=== PATIENT | female | born 1940 | race Caucasian/White ===

== ENCOUNTER 2016-10-21 07:04 | Observation (INO) | payer OTHER ==
[~2016-10-21] VITALS: Ht 139.7 cm; Wt 67.8 kg
--- NOTE | 2016-10-21 10:34 | DIAGNOSTIC IMAGING REPORT ---
PROCEDURE: XR CHEST 1 VIEW INDICATION: SOB TECHNIQUE: Portable AP view 07:55 a.m. COMPARISON: Chest 07/02/2014 and 12/21/2010 FINDINGS: There is a new left lower lobe infiltrate. Heart and mediastinum are normal. There is an old fracture the right posterior lateral fifth rib. Thorax is otherwise normal. IMPRESSION: 1. Left lower lobe infiltrate.
--- NOTE | 2016-10-21 11:01 | DIAGNOSTIC IMAGING REPORT ---
PROCEDURE: CTA THORAX WITH CONTRAST INDICATION: SHORTNESS OF BREATH TECHNIQUE: 85 ml of Isovue 370 was injected intravenously and axial images were obtained of the entire thorax with 3D sagittal and coronal MIP reconstructions. COMPARISON: Chest x-ray 10/21/2016. FINDINGS: No evidence of pulmonary emboli. No aortic dissection or aneurysm. Subsegmental left lower lobe atelectasis but no evidence of a central mass. No effusion. 2.7 cm left axillary low density soft tissue mass. Bilateral thyroid nodules, largest in the left lobe 2.2 cm. Mild coronary atherosclerosis. Mild cardiomegaly. Large pericardial fat pads. Cholecystectomy. Thoracic spine ankylosis. IMPRESSION: 1. No evidence of pulmonary emboli, aortic dissection or aneurysm 2. Subsegmental left lower lobe atelectasis, possibly from a mucous plug 3. 2.7 cm left axillary soft tissue mass, hematoma versus lymph node. 4. Bilateral thyroid nodules 5. Mild cardiomegaly 6. Ankylosing spondylitis 7. Results discussed with Dr. Snyder
--- NOTE | 2016-10-21 14:33 | ED NURSING NOTES ---
Clinical Report - Nurses [facility] [address] [place] [address] 10/21/2016 7:18 Patient: WOOD ROUSSEAU TRIAGE Triage time 07:24. Acuity: LEVEL 3. Chief Complaint: COUGH and (SOB). Alert. No acute distress. --07:45 Elmo Maguire R.N. 07:24 10/21/16. BP: 115/89. HR: 87. RR: 22. O2 saturation: 97%. Temp: 98.8 F. --07:45 Elmo Maguire R.N. 15:34 10/21/16. Pain level now 5/10. --15:34 Elmo Maguire R.N. Weight: 68.9 kg stated. Height/Length: 55 inches Per Patient. BMI: 35.4. --07:30 Elmo Maguire R.N. Medications Atenolol Oral 50 mg, daily. --07:39 Elmo Maguire R.N. Albuterol Sulfate HFA Inhalation. AmLODIPine Besylate Oral 5 mg, daily. Aspirin Oral (Tablet Chewable 81 mg), daily. Azithromycin Oral. Ferrous Sulfate Oral. OxyCODONE HCl Oral. PredniSONE Oral 5 mg, daily. --07:45 Elmo Maguire R.N. The following entry was struck by Elmo Maguire R.N., 10:40 (10/21/16) Reason - other(States no longer takes this medicine). <<STRICKEN ENTRY-- Insulin Lispro (Human) Subcutaneous. --07:45 Elmo Maguire R.N. --END STRIKE>> The following entry was struck by Elmo Maguire R.N., 10:40 (10/21/16) Reason - other(States no longer takes this medicine). <<STRICKEN ENTRY-- Glipizide Oral. --07:45 Elmo Maguire R.N. --END STRIKE>> The following entry was struck by Elmo Maguire R.N., 10:40 (10/21/16) Reason - other(States no longer takes this medicine). <<STRICKEN ENTRY-- Flonase Nasal 1 spray, daily. --07:39 Elmo Maguire R.N. --END STRIKE>> The following entry was struck by Elmo Maguire R.N., 10:39 (10/21/16) Reason - other(States no longer takes this medicine). <<STRICKEN ENTRY-- Calcitriol Oral. --07:45 Elmo Maguire R.N. --END STRIKE>> The following entry was struck by Elmo Maguire R.N., 10:39 (10/21/16) Reason - other(States no longer takes this medicine). [facility]-- Beclomethasone Dipropionate Inhalation. --07:45 Elmo Maguire R.N. --END STRIKE>> The following entry was struck and corrected by Elmo Maguire R.N., 10:38 (10/21/16) Reason for correction - other(correction). <<[facility]-- Atenolol Oral 50 mg, 2x a day. --07:39 Elmo Maguire R.N. --END STRIKE>> The following entry was struck and corrected by Elmo Maguire R.N., 10:38 (10/21/16) Reason for correction - other(correction). <<[facility]-- Aspirin Oral. --07:45 Elmo Maguire R.N. --END STRIKE>> The following entry was struck and corrected by Elmo Maguire R.N., 10:38 (10/21/16) Reason for correction - other(correction). <<[facility]-- AmLODIPine Besylate Oral. --07:45 Elmo Maguire R.N. --END STRIKE>> The following entry was struck and corrected by Elmo Maguire R.N., 10:37 (10/21/16) Reason for correction - other(correction). <<[facility]-- PredniSONE Oral. --07:45 Elmo Maguire R.N. --END STRIKE>> The following entry was struck by Elmo Maguire R.N., 10:37 (10/21/16) Reason - other(States no longer takes this medicine). <<STRICKEN ENTRY-- Pravastatin Sodium Oral. --07:45 Elmo Maguire R.N. --END STRIKE>>. Allergies LOSARTAN. --07:35 Elmo Maguire R.N. Fenofibrate. --07:35 Elmo Maguire R.N. Tape. --07:36 Elmo Maguire R.N. Allopurinol. Simvastatin. --07:36 Elmo Maguire R.N. morphine. --10:41 Elmo Maguire R.N. History Arrived by EMS. Historian: EMS and patient. Onset. (3 days ago). ( Seen yesterday at [facility] for cough and started on Zithromax. States cough and wheezing is worse. Patient in no distress, talking in long sentences. Has audible wheezes and cough.). 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 SOCIAL HX: Never smoker. FALL RISK ASSESSMENT: Fall risk assessment completed. No fall risk identified. NUTRITIONAL RISK ASSESSMENT: The nutritional risk assessment revealed no deficiencies. FUNCTIONAL ASSESSMENT: Functional assessment: no impairments noted. LEARNING NEEDS ASSESSMENT: The learning needs assessment revealed no barriers. SKIN INTEGRITY ASSESSMENT: Skin integrity risk assessment completed. No skin integrity risk identified. --07:45 Elmo Maguire R.N. Interventions ID band on patient. To room. --07:45 Elmo Maguire R.N. PHYSICAL ASSESSMENT To room via stretcher. GENERAL / NEURO / PSYCH: Alert. Oriented X 4. Appears in no acute distress. RESPIRATORY: Respirations not labored. Wheezes bilaterally. SKIN: Skin is warm and dry. --07:46 Elmo Maguire R.N. NURSING PROGRESS NOTES 07:40 10/21/2016 Duoneb (Ipratropium-Albuterol) Neb TX Nebulizer 1 unit dose given. Given by the respiratory therapist. Allergies verified and confirmed 5 rights. Thuan Chris --07:40 Thuan Chris Oxygen administered by nasal cannula at 1.5 liters. transmission and coordination engineer, pulse oximeter and NIBP monitor placed on patient. Patient ID band checked for patient name and birthdate. Blood samples drawn by nurse: green and purple top. Patient gowned. Call light placed in reach. Side rails up. Bed placed in lowest position. --07:49 Elmo Maguire R.N. EKG time: (0752). EKG was ordered, performed by a tech and shown to the ED physician. --07:55 Homero Toledo ER Tech1 08:01 10/21/2016 Site #1 started via IV in the left antecubital space with an 20g angiocath, with aseptic technique and good blood return; one attempt. Blood drawn: rainbow set. Labeled in the presence of the patient and sent to the lab. Saline lock flushed with 10 mL saline (ultrasound guidance x20 minutes). --09:01 Cornel Trejo R.N. Checked patient name and birthdate: patient confirmed. Instructions provided to collect clean catch urine and patient verbalized understanding urine collected with return of yellow-colored clear urine; odor is normal; sample sent to lab for urinalysis and culture. ( PT ambulated to bathroom with a walker, voided 200ccs). --09:26 Homero Toledo ER Tech1 09:30. Patient transported to CT by wheelchair with tech. --10:02 Elmo Maguire R.N. 09:45. Patient returned from CT by wheelchair with tech. --10:03 Elmo Maguire R.N. 09:45. ( unable to do CTA because IV has infiltrated). --10:03 Elmo Maguire R.N. 10:00. ( IV, 20 gauge started with US guidance per Dr Gilmore). --10:06 Elmo Maguire R.N. 09:57 10/21/2016 Site #2 started via IV in the right antecubital space with an 20g angiocath; one attempt. Saline lock flushed with 10 mL saline. --10:08 Elmo Maguire R.N. 10:01 10/21/2016 Morphine IVP 4 mg given over 2 minute(s) via site #2. Allergies verified, confirmed 5 rights and sedative warning given to the patient. IV patency established. IV site checked: no pain, redness, or swelling. IV flushed thoroughly pre- and post-medication administration. IVP given by --10:08 Elmo Maguire R.N. Patient transported to CT by stretcher with tech. (10:05). --10:08 Elmo Maguire R.N. 10:2010:20. Patient returned from CT by stretcher with tech. ( Patient returned from CT and states she feels bad after receiving MS. States she thinks that she remembers that she felt bad after receiving MS once before. Morphine added to her allergy list.). --10:44 Elmo Maguire R.N. 10:49 10/21/16. Point of care testing: performed by tech. Glucose: 207. --10:49 Major Myers ( PT taken to bathroom on wheelchair). --11:48 Homero Toledo, CASH Tech1 ( Patient sleeping.). --12:20 Elmo Maguire R.N. 12:19 10/21/16. O2 saturation: 91%. --12:20 Elmo Maguire R.N. 12:41 10/21/16. O2 saturation: 95%. --12:41 Elmo Maguire R.N. ( Patient sleeping. Respirations unlabored.). --12:42 Elmo Maguire R.N. 12:50 10/21/2016 Prednisone PO Tablets 40 mg given. Allergies verified and confirmed 5 rights. --12:55 Elmo Maguire R.N. 12:54 10/21/2016 Started 500 mg of Levofloxacin IVPB in bag #1 100 mL; at 100 mL/hr over 1 hour(s) via site #2 --12:54 Elmo Maguire R.N. 13:11 10/21/16. BP: 141/46. HR: 82. RR: 19. O2 saturation: 92%. --13:13 Braeden Antonio R.N. Cardiac rhythm: (SR). ( pt sleeping, equal rise fall of chest, atbx infusing per primary RN, v/s updated.). --13:13 Braeden Antonio R.N. 13:43 10/21/2016 Levofloxacin IVPB Discontinued: bag #1 infused. Total amount infused: 100 mL. IV patency established. IV site checked: no pain, redness, or swelling. IV flushed thoroughly. --13:43 Elmo Maguire R.N. 14:20 10/21/16. BP: 153/58. HR: 84. RR: 16. O2 saturation: 93%. Temp: 98.8 F. Pain level now 0/10. --14:21 Elmo Maguire R.N. ( Pt ambulated with walker. SPO2 down to 91%. Patient with labored breathing and now states she does not think she can go home. Dr Snyder notified). --14:25 Elmo Maguire R.N. 15:08 10/21/16. BP: 158/61. HR: 88. RR: 111. O2 saturation: 95%. Temp: 98.2 F. Pain level now 510. --15:11 Elmo Maguire R.N. Intake & Output Urine, with return of 200 mL urine. --12:41 Elmo Maguire R.N. DISPOSITION / DISCHARGE Condition at departure: improved. Admitted. Transported via wheelchair by nurse. Patient's personal items include, PJs, with patient. --15:33 Elmo Maguire R.N. 15:28 10/21/16. BP: 155/61. HR: 88. RR: 18. O2 saturation: 93%. Temp: 98.6 F. Pain level now 5/10. --15:33 Elmo Maguire R.N. Locked/Released at 10/21/2016 15:35 by Elmo Maguire R.N.
--- NOTE | 2016-10-21 14:33 | ED NURSING NOTES ---
Clinical Report - Nurses [facility] [address] [place] [address] 10/21/2016 7:18 Patient: WOOD ROUSSEAU TRIAGE Triage time 07:24. Acuity: LEVEL 3. Chief Complaint: COUGH and (SOB). Alert. No acute distress. --07:45 Elmo Maguire R.N. 07:24 10/21/16. BP: 115/89. HR: 87. RR: 22. O2 saturation: 97%. Temp: 98.8 F. --07:45 Elmo Maguire R.N. 15:34 10/21/16. Pain level now 5/10. --15:34 Elmo Maguire R.N. Weight: 68.9 kg stated. Height/Length: 55 inches Per Patient. BMI: 35.4. --07:30 Elmo Maguire R.N. Medications Atenolol Oral 50 mg, daily. --07:39 Elmo Maguire R.N. Albuterol Sulfate HFA Inhalation. AmLODIPine Besylate Oral 5 mg, daily. Aspirin Oral (Tablet Chewable 81 mg), daily. Azithromycin Oral. Ferrous Sulfate Oral. OxyCODONE HCl Oral. PredniSONE Oral 5 mg, daily. --07:45 Elmo Maguire R.N. The following entry was struck by Elmo Maguire R.N., 10:40 (10/21/16) Reason - other(States no longer takes this medicine). <<STRICKEN ENTRY-- Insulin Lispro (Human) Subcutaneous. --07:45 Elmo Maguire R.N. --END STRIKE>> The following entry was struck by Elmo Maguire R.N., 10:40 (10/21/16) Reason - other(States no longer takes this medicine). <<STRICKEN ENTRY-- Glipizide Oral. --07:45 Elmo Maguire R.N. --END STRIKE>> The following entry was struck by Elmo Maguire R.N., 10:40 (10/21/16) Reason - other(States no longer takes this medicine). <<STRICKEN ENTRY-- Flonase Nasal 1 spray, daily. --07:39 Elmo Maguire R.N. --END STRIKE>> The following entry was struck by Elmo Maguire R.N., 10:39 (10/21/16) Reason - other(States no longer takes this medicine). <<STRICKEN ENTRY-- Calcitriol Oral. --07:45 Elmo Maguire R.N. --END STRIKE>> The following entry was struck by Elmo Maguire R.N., 10:39 (10/21/16) Reason - other(States no longer takes this medicine). [facility]-- Beclomethasone Dipropionate Inhalation. --07:45 Elmo Maguire R.N. --END STRIKE>> The following entry was struck and corrected by Elmo Maguire R.N., 10:38 (10/21/16) Reason for correction - other(correction). <<[facility]-- Atenolol Oral 50 mg, 2x a day. --07:39 Elmo Maguire R.N. --END STRIKE>> The following entry was struck and corrected by Elmo Maguire R.N., 10:38 (10/21/16) Reason for correction - other(correction). <<[facility]-- Aspirin Oral. --07:45 Elmo Maguire R.N. --END STRIKE>> The following entry was struck and corrected by Elmo Maguire R.N., 10:38 (10/21/16) Reason for correction - other(correction). <<[facility]-- AmLODIPine Besylate Oral. --07:45 Elmo Maguire R.N. --END STRIKE>> The following entry was struck and corrected by Elmo Maguire R.N., 10:37 (10/21/16) Reason for correction - other(correction). <<[facility]-- PredniSONE Oral. --07:45 Elmo Maguire R.N. --END STRIKE>> The following entry was struck by Elmo Maguire R.N., 10:37 (10/21/16) Reason - other(States no longer takes this medicine). <<STRICKEN ENTRY-- Pravastatin Sodium Oral. --07:45 Elmo Maguire R.N. --END STRIKE>>. Allergies LOSARTAN. --07:35 Elmo Maguire R.N. Fenofibrate. --07:35 Elmo Maguire R.N. Tape. --07:36 Elmo Maguire R.N. Allopurinol. Simvastatin. --07:36 Elmo Maguire R.N. morphine. --10:41 Elmo Maguire R.N. History Arrived by EMS. Historian: EMS and patient. Onset. (3 days ago). ( Seen yesterday at [facility] for cough and started on Zithromax. States cough and wheezing is worse. Patient in no distress, talking in long sentences. Has audible wheezes and cough.). 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 SOCIAL HX: Never smoker. FALL RISK ASSESSMENT: Fall risk assessment completed. No fall risk identified. NUTRITIONAL RISK ASSESSMENT: The nutritional risk assessment revealed no deficiencies. FUNCTIONAL ASSESSMENT: Functional assessment: no impairments noted. LEARNING NEEDS ASSESSMENT: The learning needs assessment revealed no barriers. SKIN INTEGRITY ASSESSMENT: Skin integrity risk assessment completed. No skin integrity risk identified. --07:45 Elmo Maguire R.N. Interventions ID band on patient. To room. --07:45 Elmo Maguire R.N. PHYSICAL ASSESSMENT To room via stretcher. GENERAL / NEURO / PSYCH: Alert. Oriented X 4. Appears in no acute distress. RESPIRATORY: Respirations not labored. Wheezes bilaterally. SKIN: Skin is warm and dry. --07:46 Elmo Maguire R.N. NURSING PROGRESS NOTES 07:40 10/21/2016 Duoneb (Ipratropium-Albuterol) Neb TX Nebulizer 1 unit dose given. Given by the respiratory therapist. Allergies verified and confirmed 5 rights. Thuan Chris --07:40 Thuan Chris Oxygen administered by nasal cannula at 1.5 liters. phototypesetting equipment monitor, pulse oximeter and NIBP monitor placed on patient. Patient ID band checked for patient name and birthdate. Blood samples drawn by nurse: green and purple top. Patient gowned. Call light placed in reach. Side rails up. Bed placed in lowest position. --07:49 Elmo Maguire R.N. EKG time: (0752). EKG was ordered, performed by a tech and shown to the ED physician. --07:55 Homero Toledo ER Tech1 08:01 10/21/2016 Site #1 started via IV in the left antecubital space with an 20g angiocath, with aseptic technique and good blood return; one attempt. Blood drawn: rainbow set. Labeled in the presence of the patient and sent to the lab. Saline lock flushed with 10 mL saline (ultrasound guidance x20 minutes). --09:01 Cornel Trejo R.N. Checked patient name and birthdate: patient confirmed. Instructions provided to collect clean catch urine and patient verbalized understanding urine collected with return of yellow-colored clear urine; odor is normal; sample sent to lab for urinalysis and culture. ( PT ambulated to bathroom with a walker, voided 200ccs). --09:26 Homero Toledo ER Tech1 09:30. Patient transported to CT by wheelchair with tech. --10:02 Elmo Maguire R.N. 09:45. Patient returned from CT by wheelchair with tech. --10:03 Elmo Maguire R.N. 09:45. ( unable to do CTA because IV has infiltrated). --10:03 Elmo Maguire R.N. 10:00. ( IV, 20 gauge started with US guidance per Dr Gilmore). --10:06 Elmo Maguire R.N. 09:57 10/21/2016 Site #2 started via IV in the right antecubital space with an 20g angiocath; one attempt. Saline lock flushed with 10 mL saline. --10:08 Elmo Maguire R.N. 10:01 10/21/2016 Morphine IVP 4 mg given over 2 minute(s) via site #2. Allergies verified, confirmed 5 rights and sedative warning given to the patient. IV patency established. IV site checked: no pain, redness, or swelling. IV flushed thoroughly pre- and post-medication administration. IVP given by --10:08 Elmo Maguire R.N. Patient transported to CT by stretcher with tech. (10:05). --10:08 Elmo Maguire R.N. 10:2010:20. Patient returned from CT by stretcher with tech. ( Patient returned from CT and states she feels bad after receiving MS. States she thinks that she remembers that she felt bad after receiving MS once before. Morphine added to her allergy list.). --10:44 Elmo Maguire R.N. 10:49 10/21/16. Point of care testing: performed by tech. Glucose: 207. --10:49 Major Myers ( PT taken to bathroom on wheelchair). --11:48 Homero Toledo, CASH Tech1 ( Patient sleeping.). --12:20 Elmo Maguire R.N. 12:19 10/21/16. O2 saturation: 91%. --12:20 Elmo Maguire R.N. 12:41 10/21/16. O2 saturation: 95%. --12:41 Elmo Maguire R.N. ( Patient sleeping. Respirations unlabored.). --12:42 Elmo Maguire R.N. 12:50 10/21/2016 Prednisone PO Tablets 40 mg given. Allergies verified and confirmed 5 rights. --12:55 Elmo Maguire R.N. 12:54 10/21/2016 Started 500 mg of Levofloxacin IVPB in bag #1 100 mL; at 100 mL/hr over 1 hour(s) via site #2 --12:54 Elmo Maguire R.N. 13:11 10/21/16. BP: 141/46. HR: 82. RR: 19. O2 saturation: 92%. --13:13 Braeden Antonio R.N. Cardiac rhythm: (SR). ( pt sleeping, equal rise fall of chest, atbx infusing per primary RN, v/s updated.). --13:13 Braeden Antonio R.N. 13:43 10/21/2016 Levofloxacin IVPB Discontinued: bag #1 infused. Total amount infused: 100 mL. IV patency established. IV site checked: no pain, redness, or swelling. IV flushed thoroughly. --13:43 Elmo Maguire R.N. 14:20 10/21/16. BP: 153/58. HR: 84. RR: 16. O2 saturation: 93%. Temp: 98.8 F. Pain level now 0/10. --14:21 Elmo Maguire R.N. ( Pt ambulated with walker. SPO2 down to 91%. Patient with labored breathing and now states she does not think she can go home. Dr Snyder notified). --14:25 Elmo Maguire R.N. 15:08 10/21/16. BP: 158/61. HR: 88. RR: 111. O2 saturation: 95%. Temp: 98.2 F. Pain level now 510. --15:11 Elmo Maguire R.N. Intake & Output Urine, with return of 200 mL urine. --12:41 Elmo Maguire R.N. DISPOSITION / DISCHARGE Condition at departure: improved. Admitted. Transported via wheelchair by nurse. Patient's personal items include, PJs, with patient. --15:33 Elmo Maguire R.N. 15:28 10/21/16. BP: 155/61. HR: 88. RR: 18. O2 saturation: 93%. Temp: 98.6 F. Pain level now 5/10. --15:33 Elmo Maguire R.N. Locked/Released at 10/21/2016 15:35 by Elmo Maguire R.N.
--- NOTE | 2016-10-21 14:33 | ED CLINICAL REPORT ---
Clinical Report - Physicians/Mid Levels [facility] [address] [place] [address] 10/21/2016 7:18 Patient: WOOD ROUSSEAU Time Seen: 09; patient care assumed. Arrived- By private vehicle. Historian- patient. HISTORY OF PRESENT ILLNESS Chief Complaint: DYSPNEA. This started about 3 days ago and is still present (persistent). It was gradual in onset and has been constant. The dyspnea is described as moderate. The dyspnea is worsened by cough. No improvement of dyspnea with rest. The patient has had a cough and wheezing. No fever, chills, chest pain or discomfort or calf pain. No foot swelling or palpitations. Similar symptoms previously: None. Recent medical care: The patient was seen recently in a clinic. ( Seen yesterday at [facility] for cough and started on Zithromax. States cough and wheezing is worse. Patient in no distress, talking in long sentences. Has audible wheezes and cough.). REVIEW OF SYSTEMS No nasal discharge, headache, fainting episodes or skin rash. All systems otherwise negative, except as recorded above. PAST HISTORY Fibromyalgia. Arthritis. Abdominal Pain. Gallstone(s). Bowel Obstruction. Sinusitis. Anxiety Reaction. Insomnia. Ulcerative Colitis. Diabetes Mellitus. Hypertension.. Additional Surgeries: Appendectomy. Cholecystectomy. Colectomy. Colostomy. . Eye surgery.. SOCIAL HISTORY Never smoker. No alcohol use or drug use. Moderate second-hand smoke exposure (from father). ADDITIONAL NOTES The nursing notes have been reviewed. PHYSICAL EXAM Vital Signs: 10/21/2016 07:24 BP: 115/89. HR: 87. RR: 22. O2 saturation: 97%. Temp: 98.8 F. Have been reviewed as normal. Appearance: Alert. No acute distress. Eyes: Eyes normal inspection. ENT: Pharynx normal. Neck: No jugular venous distention. CVS: Normal heart rate and rhythm. Heart sounds normal. Respiratory: No respiratory distress. Mildly decreased air movement diffusely over both lungs. Expiratory mild bilateral wheezes diffusely. Skin: Skin warm and dry. Normal skin color. No rash. Extremities: Bilateral mild 1+ pitting edema of the lower extremities involving both feet and both ankles. No calf tenderness. Neuro: Oriented X 3. LABS, X-RAYS, AND EKG Chest X-ray: (1. Left lower lobe infiltrate.). Views: AP. Technique: rotated. The X-rays were independently viewed by me, interpreted by the radiologist and discussed with the radiologist. Prior films were not available for comparison. Chest CT: (1. No evidence of pulmonary emboli, aortic dissection or aneurysm 2. Subsegmental left lower lobe atelectasis, possibly from a mucous plug 3. 2.7 cm left axillary soft tissue mass, hematoma versus lymph node. 4. Bilateral thyroid nodules 5. Mild cardiomegaly 6. Ankylosing spondylitis). Chest CT performed with contrast. Prior studies were not available for comparison. The study was interpreted by the radiologist and discussed with the radiologist. Interpretation time: 11:20. Laboratory Tests: UA-Culture if indicated: (NALDO: 10/21/2016 09:20) ( [facility] [place] 09:44) Final results Test Result Flag Units (Reference) URINE COLOR YELLOW URINE APPEARANCE CLEAR URINE GLUCOSE 1+ (NEGATIVE) URINE BILIRUBIN NEGATIVE (NEGATIVE) URINE KETONE NEGATIVE (NEGATIVE) URINE SPECIFIC GRAVITY 1.025 (1.010-1.030) URINE PH 5.0 (5.0-8.0) URINE PROTEIN 2+ (NEGATIVE) URINE UROBILINOGEN 0.2 EU/dL (0.2-1.0) URINE NITRITE NEGATIVE (NEGATIVE) URINE BLOOD 1+ (NEGATIVE) URINE LEUK ESTERASE NEGATIVE (NEGATIVE) URINE RBC 1-3 rbc/hpf (0-1) URINE WBC NONE SEEN wbc/hpf (0-1) URINE EPITHELIAL CELLS 1-3 EPI/hpf (0-5) URINE BACTERIA TRACE (<1+) (NONE SEEN) URINE COMMENT CULT NOT INDICATED URINE CULTURES ARE SET-UP BASED ON THE FOLLOWING CRITERIA:POSITIVE NITRITEPOSITIVE LEUKOCYTE ESTERASEGREATER THAN 10 WHITE BLOOD CELLSMODERATE (2+) OR GREATER BACTERIA CBC w Diff: (NALDO: 10/21/2016 07:51) ( [facility] [place] 07:59) Final results Test Result Flag Units (Reference) WHITE BLOOD COUNT 12.6 H K/uL (4.5-11.5) RED BLOOD COUNT 3.77 L M/uL (4.00-5.20) HEMOGLOBIN 11.1 L gm/dL (12.0-16.0) HEMATOCRIT 33.9 L % (36.0-46.0) MEAN CELL VOLUME 90 fL (80-100) MEAN CORPUSCULAR HGB 30 pg (26-34) MEAN CORPUSCULAR HGB CONC 33 g/dL (31-37) RED CELL DISTRIBUTION WIDTH 14.9 H % (11.6-14.8) PLATELET COUNT 281 K/uL (150-400) NEUTROPHIL % 90.2 H % (50-75) LYMPH % 3.8 L % (25-40) MONO % 4.1 % (3-14) EOSINOPHIL % 1.8 % (0-4) BASOPHIL % 0.1 % (0-2) PT with INR: (NALDO: 10/21/2016 07:30) ( [facility] 10/21/2016 08:26) Final results Test Result Flag Units (Reference) INR 0.9 (0.8-1.2) Low Intensity Therapy: INR 1.5-2.0 PT range 18.5-23.1Mod.Intensity Therapy: INR 2.0-3.0 PT range 23.1-31.5High Intensity Therapy: INR 2.5-3.5 PT range 27.4-35.5High Intensity Therapy 2: INR 3.0-4.0 PT range 31.5-39.3 D-DIMER QUANTITATIVE 0.79 H ug/mLFEU (0.27-0.52) The primary value of this quantitative assay relates toits negative predictive value (i.e. exclusion) of pulmonaryembolism/deep vein thrombosis/DIC.Elevated levels of d-dimer may also occur with:, age, cancer, inflammation, liver disease,post-op, infection, hematoma, coronary disease, peripheralarteriopathy, bleeding disorders and thrombolytic treatment.Results should be correlated with other clinical andradiological data.Testing Methodology: Latex Immunoassay BNP: (NALDO: 10/21/2016 07:51) ( [facility] [place] 10/21/2016 08:19) Final results Test Result Flag Units (Reference) B-TYPE NATRIURETIC PEPTIDE 97.8 pg/ml (5-100) CMP: (NALDO: 10/21/2016 07:51) ( [facility] [place] 10/21/2016 08:27) Final results Test Result Flag Units (Reference) GLUCOSE 252 H mg/dL (70-110) BUN 31 H mg/dL (7-18) CREATININE 1.2 mg/dL (0.6-1.3) Estimated GFR 46.55 mL/min Estimated GFR- 56.42 mL/min Note: Persistent reduction over 3 months in eGFR<60 mL/min/1.73 m2 defines CKD. Patients with eGFR values>=60 mL/min/1.73 m2 may also have CKD if evidence ofpersistent proteinuria. Additional information may be foundat www.kidney.org. SODIUM 141 mmol/L (136-145) POTASSIUM 4.2 mmol/L (3.5-5.1) Slightly hemolyzed specimen CHLORIDE 104 mmol/L (98-107) CARBON DIOXIDE 27 mmol/L (21-32) CALCIUM 9.8 mg/dL (8.5-10.1) TOTAL PROTEIN 7.5 g/dL (6.4-8.2) ALBUMIN 3.3 g/dL (3.3-5.0) BILIRUBIN, TOTAL 0.3 mg/dL (0.0-1.0) ALKALINE PHOSPHATASE 129 H U/L (46-116) AST (SGOT) 17 U/L (15-37) ALT (SGPT) 22 U/L (12-78) TROPONIN I <0.05 ng/mL (0.00-1.5) TROPONIN REFERENCE RANGE:<0.1 NEGATIVE0.1-1.5 INDETERMINANT>1.5 POSITIVE THYROID STIMULATING HORMONE 0.636 uIU/mL (0.30-3.74) Rapid Influenza Screen: (NALDO: 10/21/2016 14:00) ( [facility] 10/21/2016 14:38) Final results SPECIMEN DESCRIPTION: SWAB Test Result Flag Units (Reference) RAPID INFLUENZA SCREEN DATE: 10/21/16 INFLUENZA A: NEGATIVE SCREEN FOR INFLUENZA A INFLUENZA B: NEGATIVE SCREEN FOR INFLUENZA B . PROGRESS AND PROCEDURES Discussed case with hospitalist, (call placed [phone] Dr[address] Gardner. [phone] Carmona, will place in obs.). Disposition: Observation in Acute Care. CLINICAL IMPRESSION Acute exacerbation of COPD. INSTRUCTIONS Follow-up: Blood pressure screening was not performed during this visit because the patient has an active diagnosis of hypertension. (Electronically signed by Juan Manuel Snyder Dr. 10/21/2016 15:01)
--- NOTE | 2016-10-21 14:33 | ED ORDER SUMMARY ---
..... Patient: HEAD, WOOD Wilson OrderSheet [facility] VisitID: [id number] [place] [address] 75y, F Registration Date/Time: 10/21/2016 ORDER SHEET Weight: 68.9 kg (stated) Allergies: LOSARTAN, Fenofibrate, Tape, Allopurinol, Simvastatin, morphine GENERAL ORDERS: Chest 1V Urgent (07:10/21/2016 Marlon Dubose) (Ack 7:35 RUPERToerner) (7:53 KHoerner) Formation Testing Operator (Continuous) (SOB) (:10/21/2016 Marlon Dubose) (7:53 Pao R.N.) CBC w Diff Urgent (:10/21/2016 Marlon Dubose) (Ack 7:35 Vicentener) (8:08 Pao R.N.) CMP Urgent (:10/21/2016 Marlon Dubose) (Ack 7:35 RUPERToerner) (8:08 KWilliams R.N.) UA-Culture if indicated Urgent (:10/21/2016 Marlon Dubose) (Ack 7:35 Mina) (9:28 PWeiler ER Tech1) PT with INR Urgent (:10/21/2016 Marlon Dubose) (Ack 7:35 Vicentener) (8:08 KWelizabethams R.N.) Troponin-I Urgent (:10/21/2016 Marlon Dubose) (Ack 7:35 RUPERToerner) (8:08 KWilliams R.N.) D-Dimer Urgent (:10/21/2016 Marlon Dubose) (Ack 7:35 RUPERToerner) (8:08 Pao R.N.) TSH Urgent (:10/21/2016 Marlon Dubose) (Ack 7:35 RUPERToerner) (8:08 KWilliams R.N.) BNP Urgent (:10/21/2016 Marlon Dubose) (Ack 7:35 Mina) (8:08 KWilliams R.N.) Pulse oximeter (07:30 10/21/2016 Marlon Dubose) (7:53 KWilliams R.N.) - (medical records from [facility]) (07:36 10/21/2016 Marlon Dubose) (7:38 Mina) CTA Thorax w Cont (Yes) (gfr> 50) Urgent (08:48 10/21/2016 Marlon Dubose) (Ack 8:49 Mina) (9:36 RUPERToerprateek) Rapid Influenza Screen (Nasal Pharyngeal) (SWAB) Urgent (14:00 10/21/2016 Mina verbal order read back to Xochitl Dubose) (14:01 RUPERToeradha) MEDICATION ORDERS: DuoNeb Neb Tx 1 unit dose (NOW) (07:29 10/21/2016 Marlon Dubose) (7:40 JZiglar) Prednisone PO 40 mg (NOW) (12:38 10/21/2016 Xochitl Dubose) (12:55 GMarshall R.N.) IV FLUIDS: IV Saline Lock (07:30 10/21/2016 Marlon Dubose) (9:01 Pao R.N.) Morphine IV 4 mg (HIGH ALERT MEDICATION, NOW) (08:58 10/21/2016 Marlon Dubose) (Ack 9:03 GMarshall R.N.) (10:08 GMarshall R.N.) Levofloxacin IV 500 mg/100mL (NOW) (12:37 10/21/2016 Xochitl Dubose) (12:54 GMarshall R.N.) ORDER SHEET NOTES: [Electronically signed by Juan Manuel Snyder Dr. (15:01 10/21/2016)] [Electronically signed by lEmo Maguire R.N. (15:35 10/21/2016)] [Electronically locked/signed by Elmo Maguire R.N. (15:35 10/21/2016)]
--- NOTE | 2016-10-21 14:33 | ED ORDER SUMMARY ---
..... Patient: HEAD, WOOD Wilson OrderSheet [facility] VisitID: [id number] [place] [address] 75y, F Registration Date/Time: 10/21/2016 ORDER SHEET Weight: 68.9 kg (stated) Allergies: LOSARTAN, Fenofibrate, Tape, Allopurinol, Simvastatin, morphine GENERAL ORDERS: Chest 1V Urgent (07:10/21/2016 Marlon Dubose) (Ack 7:35 RUPERToerner) (7:53 KHoerner) Retail Sales Director (Continuous) (SOB) (:10/21/2016 Marlon Dubose) (7:53 Pao R.N.) CBC w Diff Urgent (:10/21/2016 Marlon Dubose) (Ack 7:35 Vicentener) (8:08 Pao R.N.) CMP Urgent (:10/21/2016 Marlon Dubose) (Ack 7:35 RUPERToerner) (8:08 KWilliams R.N.) UA-Culture if indicated Urgent (:10/21/2016 Marlon Dubose) (Ack 7:35 Mina) (9:28 PWeiler ER Tech1) PT with INR Urgent (:10/21/2016 Marlon Dubose) (Ack 7:35 Vicentener) (8:08 KWelizabethams R.N.) Troponin-I Urgent (:10/21/2016 Marlon Dubose) (Ack 7:35 RUPERToerner) (8:08 KWilliams R.N.) D-Dimer Urgent (:10/21/2016 Marlon Dubose) (Ack 7:35 RUPERToerner) (8:08 Pao R.N.) TSH Urgent (:10/21/2016 Marlon Dubose) (Ack 7:35 RUPERToerner) (8:08 KWilliams R.N.) BNP Urgent (:10/21/2016 Marlon Dubose) (Ack 7:35 Mina) (8:08 KWilliams R.N.) Pulse oximeter (07:30 10/21/2016 Marlon Dubose) (7:53 KWilliams R.N.) - (medical records from [facility]) (07:36 10/21/2016 Marlon Dubose) (7:38 Mina) CTA Thorax w Cont (Yes) (gfr> 50) Urgent (08:48 10/21/2016 Marlon Dubose) (Ack 8:49 Mina) (9:36 RUPERToerprateek) Rapid Influenza Screen (Nasal Pharyngeal) (SWAB) Urgent (14:00 10/21/2016 Mina verbal order read back to Xochitl Dubose) (14:01 RUPERToeradha) MEDICATION ORDERS: DuoNeb Neb Tx 1 unit dose (NOW) (07:29 10/21/2016 Marlon Dubose) (7:40 JZiglar) Prednisone PO 40 mg (NOW) (12:38 10/21/2016 Xochitl Dubose) (12:55 GMarshall R.N.) IV FLUIDS: IV Saline Lock (07:30 10/21/2016 Marlon Dubose) (9:01 Pao R.N.) Morphine IV 4 mg (HIGH ALERT MEDICATION, NOW) (08:58 10/21/2016 Marlon Dubose) (Ack 9:03 GMarshall R.N.) (10:08 GMarshall R.N.) Levofloxacin IV 500 mg/100mL (NOW) (12:37 10/21/2016 Xochitl Dubose) (12:54 GMarshall R.N.) ORDER SHEET NOTES: [Electronically signed by Juan Manuel Snyder Dr. (15:01 10/21/2016)] [Electronically signed by Elmo Maguire R.N. (15:35 10/21/2016)] [Electronically locked/signed by Elmo Maguire R.N. (15:35 10/21/2016)]
--- NOTE | 2016-10-21 15:35 | ED DISCHARGE INSTRUCTIONS ---
Patient: HEAD, WOOD Wilson General Instructions [facility] VisitID: [id number] [address] [place] [address] 75y, F Registration Date/Time: 10/21/2016 Acute exacerbation of COPD. INSTRUCTIONS Follow-up: Blood pressure screening was not performed during this visit because the patient has an active diagnosis of hypertension. (Electronically signed by Juan Manuel Snyder Dr. 10/21/2016 15:01)
--- NOTE | 2016-10-21 15:35 | ED DISCHARGE INSTRUCTIONS ---
Patient: HEAD, WOOD Wilson General Instructions [facility] VisitID: [id number] [address] [place] [place] [address] 75y, F Registration Date/Time: 10/21/2016 Acute exacerbation of COPD. INSTRUCTIONS Follow-up: Blood pressure screening was not performed during this visit because the patient has an active diagnosis of hypertension. (Electronically signed by Juan Manuel Snyder Dr. 10/21/2016 15:01)
--- NOTE | 2016-10-21 15:35 | ED MED RECONCILIATION SUMMARY ---
Patient: WOOD ROUSSEAU Medication Reconciliation Report [facility] VisitID: [id number] [address] [place] [address] 75y, F Registration Date/Time: 10/21/2016 Weight: 68.9 kg Height/Length: 55 in. BMI: 35.4 ALLERGIES: Allopurinol, Fenofibrate, LOSARTAN, morphine, Simvastatin, Tape The patient's Home Medications are listed below: THE FOLLOWING MEDICATIONS NEED TO BE RECONCILED: Albuterol Sulfate HFA Inhalation AmLODIPine Besylate Oral 5 mg, daily Aspirin Oral (81 mg), daily Atenolol Oral 50 mg, daily Azithromycin Oral Ferrous Sulfate Oral OxyCODONE HCl Oral PredniSONE Oral 5 mg, daily The source(s) of the original Home Medication information: Not obtained. The following Medications were given to the patient in the Emergency Department: Duoneb [Neb Tx] Neb TX 1 unit dose, administered: 10/21/2016 7:40:00 AM Morphine [IVP] IVP 4 mg, administered: 10/21/2016 10:01:00 AM Levofloxacin [IVPB] IVPB bolus 0, then 500 mg 100 mL/hr, administered: 10/21/2016 12:54:00 PM Prednisone [PO] PO 40 mg, administered: 10/21/2016 12:50:00 PM The following Medications were prescribed to the patient: None.
--- NOTE | 2016-10-21 15:35 | ED MED RECONCILIATION SUMMARY ---
Patient: WOOD ROUSSEAU Medication Reconciliation Report [facility] VisitID: [id number] [address] [place] [address] 75y, F Registration Date/Time: 10/21/2016 Weight: 68.9 kg Height/Length: 55 in. BMI: 35.4 ALLERGIES: Allopurinol, Fenofibrate, LOSARTAN, morphine, Simvastatin, Tape The patient's Home Medications are listed below: THE FOLLOWING MEDICATIONS NEED TO BE RECONCILED: Albuterol Sulfate HFA Inhalation AmLODIPine Besylate Oral 5 mg, daily Aspirin Oral (81 mg), daily Atenolol Oral 50 mg, daily Azithromycin Oral Ferrous Sulfate Oral OxyCODONE HCl Oral PredniSONE Oral 5 mg, daily The source(s) of the original Home Medication information: Not obtained. The following Medications were given to the patient in the Emergency Department: Duoneb [Neb Tx] Neb TX 1 unit dose, administered: 10/21/2016 7:40:00 AM Morphine [IVP] IVP 4 mg, administered: 10/21/2016 10:01:00 AM Levofloxacin [IVPB] IVPB bolus 0, then 500 mg 100 mL/hr, administered: 10/21/2016 12:54:00 PM Prednisone [PO] PO 40 mg, administered: 10/21/2016 12:50:00 PM The following Medications were prescribed to the patient: None.
--- NOTE | 2016-10-21 15:35 | ED MAR SUMMARY ---
..... Medication Administration Record [facility] [address] [place] [address] Patient: OWOD ROUSSEAU Visit ID: [id number] 75y, F Weight: 68.9 kg Height/Length: 55 in BMI: 35.4 ALLERGIES: Tape, Fenofibrate, LOSARTAN, Simvastatin, Allopurinol, morphine Given 07:40 10/21/2016 Thuan Chris, Medication Administered: DUONEB [NEB TX] (IPRATROPIUM-ALBUTEROL), Dose: 1 unit dose Nebulizer Neb TX. Medication Ordered: DuoNeb Neb Tx 1 unit dose (NOW). Given 10:01 10/21/2016 Elmo Maguire R.N. Medication Administered: MORPHINE [IVP], Dose: 4 mg IVP over 2 minute(s), Site: #2 right AC. Medication Ordered: Morphine IV 4 mg (HIGH ALERT MEDICATION, NOW). Given 12:50 10/21/2016 Elmo Maguire R.N. Medication Administered: PREDNISONE [PO], Dose: 40 mg Tablets PO. Medication Ordered: Prednisone PO 40 mg (NOW). Start 12:54 10/21/2016 Elmo Maguire R.N., Stop 13:43 10/21/2016 Elmo Maguire R.N. Medication Administered: LEVOFLOXACIN [IVPB], Dose: 500 mg IVPB over 1 hour(s), Rate: 100 mL/hr, Dispensed: 100 mL bag, Site: #2 right AC. Medication Ordered: Levofloxacin IV 500 mg/100mL (NOW).
--- NOTE | 2016-10-21 15:35 | ED MAR SUMMARY ---
..... Medication Administration Record [facility] [address] [place] [address] Patient: WOOD ROUSSEAU Visit ID: [id number] 75y, F Weight: 68.9 kg Height/Length: 55 in BMI: 35.4 ALLERGIES: Tape, Fenofibrate, LOSARTAN, Simvastatin, Allopurinol, morphine Given 07:40 10/21/2016 Thuan Chris, Medication Administered: DUONEB [NEB TX] (IPRATROPIUM-ALBUTEROL), Dose: 1 unit dose Nebulizer Neb TX. Medication Ordered: DuoNeb Neb Tx 1 unit dose (NOW). Given 10:01 10/21/2016 Elmo Maguire R.N. Medication Administered: MORPHINE [IVP], Dose: 4 mg IVP over 2 minute(s), Site: #2 right AC. Medication Ordered: Morphine IV 4 mg (HIGH ALERT MEDICATION, NOW). Given 12:50 10/21/2016 Elmo Maguire R.N. Medication Administered: PREDNISONE [PO], Dose: 40 mg Tablets PO. Medication Ordered: Prednisone PO 40 mg (NOW). Start 12:54 10/21/2016 Elmo Maguire R.N., Stop 13:43 10/21/2016 Elmo Maguire R.N. Medication Administered: LEVOFLOXACIN [IVPB], Dose: 500 mg IVPB over 1 hour(s), Rate: 100 mL/hr, Dispensed: 100 mL bag, Site: #2 right AC. Medication Ordered: Levofloxacin IV 500 mg/100mL (NOW).
--- NOTE | 2016-10-21 15:49 | NUR ---
PATIENT ADMITTED FROM ED TO ROOM 212. AMBULATED FROM WC TO BED W/O PROBLEMS. LUNGS WITH SLIGHT EXP WHEEZE TO BILATERAL LOWER LOBES. STATES SHE HAS HAD A PRIOR DIAGNOSIS OF COPD FROM 2013. SEE ADMIN ASSESSMENT FOR FURTHER DETAILS.
[2016-10-21] MEDS ORDERED: PREDNISONE5 MG PO (15:53)
[2016-10-21] MEDS ORDERED: ATENOLOL25 MG PO (15:53)
[2016-10-21 15:54] VITALS: BP 166/54
[2016-10-21] MEDS ORDERED: AMLODIPINE BES2.5 MG PO (15:54)
[2016-10-21] MEDS ORDERED: OXAYDO5 MG PO (15:54)
[2016-10-21] MEDS ORDERED: PROVENTIL HFA (15:55)
[2016-10-21] MEDS ORDERED: QVAR40 MCG IN (15:55)
--- NOTE | 2016-10-21 16:08 | HISTORY AND PHYSICAL ---
ADMITTED: 10/21/2016 CHIEF COMPLAINT: 1. Shortness of breath 2. Weakness HISTORY OF PRESENT ILLNESS: The patient is a 75-year-old female with a history of chronic obstructive pulmonary disease, who started feeling lousy, coughing, body aches more than normal for the last 3 days, and has been getting worse. She is having more shortness of breath and worse coughing. She went in to the emergency department for evaluation. In the ED, she was found to have borderline hypoxia, with an O2 saturation of 91%, and she also had a fair amount of wheezing. She has not had any fevers or chills or chest pain or calf discomfort. She does have a little bit of foot swelling and leg swelling that is chronic. She has recently been evaluated in her medical clinic at [facility] and was started on azithromycin. Her cough and wheezing are getting worse, and yet she is able to talk well. She was able to walk to the bathroom initially in the emergency department, but then after some nebulizer treatments, she was no longer able to get there because of weakness. MEDICAL/SURGICAL HISTORY: Past medical history: She has had fibromyalgia, arthritis, abdominal pain, gallstones, small bowel obstruction, sinusitis, hypertension, ulcerative colitis, diabetes, pneumonias, collapsed lung, gout. In the past, her surgeries, she has had an appendectomy, cataract surgery bilaterally, C-sections x4, cholecystectomy, breast surgery, and colectomy. MEDICATIONS: 1. Atenolol 50 mg p.o. daily. 2. Albuterol inhalation 2 puffs daily or as needed q.2h. p.r.n. 3. Amlodipine 5 mg p.o. daily. 4. Aspirin 81 mg p.o. daily. 5. Ferrous sulfate 325 mg p.o. daily. 6. Oxycodone 5/325 one p.o. 4 hours p.r.n. pain. 7. Prednisone 5 mg p.o. daily. ALLERGIES: 1. FENOFIBRATE. 2. PREDNISONE. 3. STATINS. 4. SULFA. 5. TAPE. SOCIAL HISTORY: She is . No history of smoker, but she had lots of secondhand smoke exposure in the past. She does not use any alcohol or drugs. She has family members who are local and present. FAMILY HISTORY: History is noncontributory. REVIEW OF SYSTEMS: As stated. No nasal discharge, headache, fainting. She does have the weakness. She does have the wheezing and cough. PHYSICAL EXAMINATION: GENERAL: She is an alert female who appears to be in no significant distress. She is talking in full sentences and cooperative and alert and oriented x3. VITAL SIGNS: Blood pressure of 115/89, heart rate of 87, respirations 22, saturating 97% on room air, temperature is 98.8, O2 saturation dropped down to about 91% with ambulation. GENERAL APPEARANCE: She is alert, no acute distress. HEENT: Extraocular movements intact. Pupils equal, round, and reactive to light. Oropharynx is clear with moist mucous membranes. NECK: Supple, without JVD or distention. HEART: Regular rate and rhythm. LUNGS: Decreased air movement and wheezes diffusely in both lungs. ABDOMEN: Soft. It is nontender, not distended. She has a colostomy bag on the left lower abdomen. EXTREMITIES: +1 edema bilaterally, over her tibial region. NEUROLOGIC: She is alert and oriented x3. Cranial nerves II through XII intact. Strength and sensation grossly intact, without localizing symptoms or signs. LAB/IMAGING: Her x-ray shows possible left lower lobe infiltrate; however, CT of the chest showed just some atelectasis at that location, no pneumonia. She has a 2.7 cm left axillary soft tissue mass, hematoma versus lymph node. Bilateral thyroid nodules , mild cardiomegaly, ankylosing spondylitis noted on CT. Labs: A urinalysis shows +1 blood, no white cells, negative leukocyte esterase and nitrites. She has a white count 12.6, hematocrit of 33.9, and platelets of 281. An INR of 0.9. D-dimer 0.79. BNP of 97.8. Glucose of 252, BUN of 31, creatinine 1.2, sodium 141, potassium 4.2, chloride 104, carbon dioxide 27, calcium 9.8, total protein 7.5, albumin 3.3, total bilirubin 0.3, alkaline phosphatase 129, AST of 17, ALT of 22, troponin I less than 0.05. A flu screen was negative. IMPRESSION: 1. This is a 75-year-old female who presents to the emergency department with shortness of breath and body aches. She appears to have some sort of viral illness with coughing as well as diffuse wheezes. PLAN: We will treat her with prednisone as well as nebulizers. She has recently been on azithromycin, which should remain in her system at this point, and anticipate the patient Observastion status as likely will improve over the next couple of days and be ready for d/c. Possible in am. CODE STATUS: FULL CODE.
[2016-10-21 18:25] VITALS: BP 177/59
[2016-10-21 22:24] VITALS: BP 156/76
--- NOTE | 2016-10-22 01:00 | NUR ---
AT 2100, PT'S BG WAS 430. DR. CORDERO NOTIFIED. ORDER TO RECHECK BG IN 4 HOURS. IT WAS DISCOVERED THAT PT WAS ON "GENERAL DIET" INSTEAD OF CONSISTENT CARB WHICH MAY HAVE CONTRIBUTED TO THE ELEVATED GLUCOSE. BG RECHECK AT 0100 WAS 323.
[2016-10-22 02:48] VITALS: BP 134/75
--- NOTE | 2016-10-22 05:56 | NUR ---
PT SLEPT WELL BETWEEN CARE. MEDICATED FOR CHRONIC ARTHRITIC PAIN WITH PRN PAIN MEDS, WITH GOOD RESULT. VSS ON ROOM AIR. LUNGS HAD EXPIRATORY WHEEZES THROUGHOUT AT BEGINNING OF SHIFT. PT AMBULATED WITH WALKER AND STANDBY ASSIST AROUND UNIT BEFORE SETTLING INTO BED. BP HAD BEEN ELEVATED AT BEGINNING OF SHIFT. SCHEDULED MEDS GIVEN, BP DECREASED.
[2016-10-22 07:17] VITALS: BP 157/74
--- NOTE | 2016-10-22 09:20 | Progress Note ---
Subjective General patient is feeling betterand wants to go home No fever or chills. No chest pain Physical Exam Vital Signs / I&Os Vital Signs Date Time Temp Pulse Resp B/P Pulse O2 O2 Flow FiO2 Ox Delivery Rate 10/22 0847 67 10/22 0717 97.5 82 18 157/74 94 Room Air 10/22 0248 98.4 54 15 134/75 96 Room Air 10/21 2224 98.2 64 16 156/76 95 Room Air 10/22 2019 Room Air 10/21 2012 68 10/21 1825 98.1 89 18 177/59 94 Room Air 10/21 1554 98.2 81 18 166/54 94 Room Air I&O 10/22 0000 10/21 1600 10/21 0800 Intake Total 360 0 Output Total 150 0 Balance 210 0 General Appearance Alert, Oriented X3, Cooperative HEENT no palpable lymph node or mass in left/right axilla Lungs good air exchange, minimal wheeze posteriorly, prolonged expirations, no use of accessory muscles Cardiovascular Regular rate and rhythm, Normal S1 and S2, No murmurs, gallops, rubs Abdomen Normal bowel sounds, Soft, No guarding, No masses Extremities No cyanosis, No edema, Nick's sign negative Neurological No lateralizing signs Assessment and Plan Problem List 1. COPD (chronic obstructive pulmonary disease) Plan patient has a viral syndrome on top of her copd. appears to be imrpoved. will d/ c home on oral steroids has thyroid nodules on ct-- patient reports that these are old and has had ultrasounds done also has left axillary 2.7 cm mass ( hematomo or lymph node-- advised to need to have follow up study through her pcp Plan of care/ need for follow up on thyroid and left axillary mass discussed with . dr. otto's nurse over the phone. dr. otto not avialble on . Plan of care also discussed extensively with patient
[2016-10-22] MEDS ORDERED: PREDNISONE20 MG PO (09:26)
--- NOTE | 2016-10-22 09:27 | Provider's Discharge Care Plan ---
Problem, Goal, Plan Problem List 1. COPD (chronic obstructive pulmonary disease) Instructions: Follow up as needed (ff u p with dr. otto), Take meds as directed
--- NOTE | 2016-10-22 09:27 | Provider's Discharge Care Plan ---
Problem, Goal, Plan Problem List 1. COPD (chronic obstructive pulmonary disease) Instructions: Follow up as needed (ff u p with dr. otto), Take meds as directed
--- NOTE | 2016-10-22 09:36 | NUR ---
NUTRITION CONSULT: [place] pt this am, states that her glucometer broke and was not able to check sugars at home. Gave pt new glucometer to take home with her. Pt to follow up with PCP. Hospitalist to write script for supplies for meter. RD to follow up with further consultation if desired. Pt to d/c this am.
[2016-10-22 14:25] VITALS: BP 172/71
--- NOTE | 2016-10-22 15:54 | NUR ---
BS CTA, STATES FEELS "MUCH BETTER". AMBULATES FLOOR ON HER OWN WITH NO PROBLEM. D/C INSTRUCTIONS GONE OVER WITH DAUGHTER AND ESCORTED OUT IN W/C.
== END 2016-10-22 15:50 | disposition home or self-care (01) ==
LOC: ED SRH 07:04 → TRANS SRH 14:39 → ACUTE2 SRH 14:39
PROVIDERS: ADMIT Family Medicine
DX: J44.1 Chronic obstructive pulmonary disease with (acute) exacerbation (principal); R09.02 Hypoxemia; B34.9 Viral infection, unspecified; R22.2 Localized swelling, mass and lump, trunk; I10 Essential (primary) hypertension; E11.9 Type 2 diabetes mellitus without complications; M79.7 Fibromyalgia; Z79.52 Long term (current) use of systemic steroids; Z93.3 Colostomy status
CPT/HCPCS: 29230; 29251; 90004; 90074; 90098; 90100; 90616; 91286; 91320; 91400; 91556; 93140; 94060; 95059